=== PATIENT | male | born 1995 | race African-American/Black ===

== ENCOUNTER 2017-12-26 23:34 | Emergency (ER) | payer OTHER ==
[~2017-12-26] VITALS: Ht 180.3 cm; Wt 72.6 kg
[2017-12-27 00:46] LABS: HEMATOCRIT 42.4 % (42.0-52.0); HEMOGLOBIN 14.8 gm/dL (14.0-18.0); MCH 31.6 pg (26.0-34.0); MCHC 34.9 g/dL (28.0-37.0); MCV 90.6 fL (80.0-100.0); PLATELET COUNT 143 thou/uL (150-400); RBC 4.68 mil/uL (4.50-6.00); RDW 12.5 % (10.5-14.5); WBC 10.4 thou/uL (4.0-11.0)
[2017-12-27 00:50] LABS: CALCIUM 9.1 mg/dL (8.5-10.1); CREATININE 1.4 mg/dL (0.7-1.3); POTASSIUM 3.7 mmol/L (3.5-5.1)
[2017-12-27 00:56] LABS: ALBUMIN 4.3 g/dL (3.4-5.0); TOTAL BILIRUBIN 0.7 mg/dL (<0.1-1.0); TOTAL PROTEIN 8.1 g/dL (6.4-8.2)
[2017-12-27 03:35] LABS: URINE BILIRUBIN NEGATIVE (Negative); URINE BLOOD NEGATIVE (Negative); URINE CLARITY CLEAR; URINE COLOR YELLOW; URINE GLUCOSE-RANDOM* NEGATIVE (Negative); URINE KETONES 1+ (Negative); URINE LEUKOCYTES-REFLEX NEGATIVE (Negative); URINE NITRITE-REFLEX NEGATIVE (Negative); URINE PROTEIN (DIPSTICK) TRACE (Negative); URINE SPECIFIC GRAVITY <= 1.005 (1.005-1.035)
[2017-12-27] MEDS ORDERED: SENNA-DOCUSATE1 EACH PO (05:02)
[2017-12-27] MEDS ORDERED: CIPROFLOXACIN500 M1 PO (05:02)
[2017-12-27] MEDS ORDERED: NORCO 5-325 TA1 EACH PO (05:02)
[2017-12-27] MEDS ORDERED: ZOFRAN4 MG PO (05:02)
[2017-12-27 05:10] VITALS: BP 105/49
== END 2017-12-27 05:10 | disposition home or self-care (01) ==
LOC: ER 23:34 → EDBD 23:34 → ER 12-27 05:10
PROVIDERS: Emergency Medicine
DX: K52.9 Noninfective gastroenteritis and colitis, unspecified (principal)